=== PATIENT | female | born 1955 | race Hispanic/Latino ===

== ENCOUNTER 2017-01-26 20:09 | Emergency (ER) | payer MEDICAID ==
[2017-01-26 21:10] VITALS: BP 151/82; PULSE 72; RESP 18; TEMP 97.5; O2SAT 96
--- NOTE | 2017-01-26 21:21 | ED PDOC ---
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 Patient states she recently went swimming. She denies active drainage or bleeding from the ear, no hearing loss. No associated sore throat, fever or chills. No meds taken for relief of right ear pain. Past Medical History Reviewed: Historical Data, Nursing Documentation, Vital Signs Vital Signs: Last Vital Signs Temp 97.5 F L 01/26/17 21:06 Pulse 72 01/26/17 21:06 Resp 18 01/26/17 21:06 BP 151/82 H 01/26/17 21:06 Pulse Ox 96 01/26/17 23:23 - Medical History PMH: Anxiety, HTN - Family History Family History: States: No Known Family Hx - Living Arrangements Living Arrangements: With Family - Social History Current smoker - smoking cessation education provided: No Alcohol: None Drugs: Denies - Home Medications Home Medications: Ambulatory Orders Medication Instructions Recorded Ibuprofen [Motrin] 600 mg PO Q6 PRN #15 tab 01/26/17 - Allergies Allergies/Adverse Reactions: Allergies Allergy/AdvReac Type Severity Reaction Status Date / Time Unobtainable Allergy Verified 01/26/17 21:06 Review of Systems ROS Statement: Except As Marked, All Systems Reviewed And Found Negative Constitutional: Negative for: Fever, Chills ENT: Positive for: Ear Pain (right ear pain for 2 days). Negative for: Throat Pain, Throat Swelling Respiratory: Negative for: Cough Gastrointestinal: Negative for: Nausea, Vomiting Neurological: Negative for: Headache, Dizziness Physical Exam - Reviewed Nursing Documentation Reviewed: Yes Vital Signs Reviewed: Yes - Physical Exam Appears: Positive for: Well Skin: Negative for: Rash Eye Exam: Positive for: Normal appearance, EOMI, PERRL ENT: Positive for: Normal ENT Inspection, Other (TM's normal bilaterally, no otitis noted, no perf, canals are clear bilaterally). Negative for: Nasal Congestion, Pharyngeal Erythema, Tonsillar Exudate, Tonsillar Swelling Neck: Positive for: Normal Cardiovascular/Chest: Positive for: Regular Rate, Rhythm Respiratory: Positive for: Normal Breath Sounds. Negative for: Wheezing, Respiratory Distress Neurologic/Psych: Positive for: Gait (steady) - ECG O2 Sat by Pulse Oximetry: 96 Pulse Ox Interpretation: Normal Medical Decision Making Medical Decision Makin-year-old female with right ear pain Patient is well-appearing, vital signs are stable, no acute distress noted upon arrival, no fever or chills. No infection noted, patient was offered pain medication dose in ED but she declined. Prescription given for Motrin to take as needed for pain. Patient was provided with referral to ENT. Disposition - Clinical Impression Clinical Impression: Otalgia - Patient ED Disposition Is Patient to be Admitted: No Counseled Patient/Family Regarding: Diagnosis, Need For Followup, Rx Given - Disposition Referrals: Kenny Tomlin MD [Staff Provider] - Disposition: Routine/Home Disposition Time: 22:17 Condition: STABLE Additional Instructions: Take rx meds as directed as needed for pain. Follow up with primary care doctor or with ear, nose and throat specialist. Prescriptions: Ibuprofen [Motrin] 600 mg PO Q6 PRN #15 tab PRN Reason: Pain, Moderate (4-7) Instructions: Earache (ED)
== END 2017-01-26 22:49 | disposition home or self-care (01) ==
LOC: H.ER 20:09
DX: H92.09 Otalgia, unspecified ear (principal); F41.9 Anxiety disorder, unspecified; I10 Essential (primary) hypertension